=== PATIENT | male | born 1975 | race Hispanic/Latino ===

== ENCOUNTER 2019-08-16 21:25 | Emergency (ER) | payer BC, SELFPAY ==
[2019-08-16] MEDS ORDERED: Acetaminophen 500 MG TAB ONE (23:51)
[2019-08-17] MEDS ORDERED: Ondansetron ODT 4 MG TAB ONE (00:17)
--- NOTE | 2019-08-17 07:27 | CT ---
CT BRAIN WITHOUT CONTRAST: Date: 08/16/2019 HISTORY: Trauma. COMPARISON: CT brain from 2006. FINDINGS: No acute hemorrhage or infarct. No midline shift or mass effect. Anterior falx calcifications. Calvar ium is intact. Paranasal sinuses and mastoids are relatively clear. IMPRESSION: No acute intracranial abnormality. POS: HOME
--- NOTE | 2019-08-17 07:31 | CT ---
CT CERVICAL SPINE WITHOUT CONTRAST: Date: 08/16/2019 HISTORY: Trauma. COMPARISON: Cervical spine CT from 2006. FINDINGS: The occipital condyles are intact. The odontoid process is intact. There is no acute traumatic facet joint widening. There is moderate degenerative disease of the right C5-C6 facet joint with capsular c alcifications. Spine relatively similar from 2006. Moderate disc osteophyte complex at C6-7. The transverse processes are intact. Sinus processes are in tact. Posterior ribs are intact. IMPRESSION: No acute fracture or malalignment of the cervical spine. POS: HOME
== END 2019-08-17 00:33 | disposition home or self-care (01) ==
LOC: ERS 21:25
DX: S00.03XA Contusion of scalp, initial encounter (principal); E78.5 Hyperlipidemia, unspecified; Z79.899 Other long term (current) drug therapy; W20.8XXA Other cause of strike by thrown, projected or falling object, initial encounter
CPT/HCPCS: 70450; 72125; Q0162